=== PATIENT | female | born 1940 | race Caucasian/White ===

== ENCOUNTER 2018-06-15 13:23 | Emergency (ER) | payer MEDICARE, OTHER ==
[~2018-06-15] VITALS: Ht 160 cm; Wt 73.9 kg
[~2018-06-15 13:23] MED LIST: BUSPIRONE HCL15 MG PO; CEFDINIR300 MG PO; CLONAZEPAM0.5 MG PO; FLUOXETINE HCL25 GM; FLUOXETINE HCL40 MG PO; KLONOPIN0.5 MG PO; LIPITOR20 MG PO; LIPITOR40 MG PO; LISINOPRIL10 MG PO; MELOXICAM7.5 MG PO; METHOCARBAMOL500 MG; METHOCARBAMOL500 MG PO; NEXIUM40 MG PO; NORCO 10MG-325MG1 EA PO; NORCO 5-325 TA1 EACH PO; PROZAC20 MG; SEROQUEL25 MG PO; SEROQUEL300 MG PO; ULTRAM 50MG50 MG PO; ULTRAM50 MG PO; XANAX0.25 MG
[2018-06-15 16:10] VITALS: BP 125/95
== END 2018-06-15 14:40 | disposition home or self-care (01) ==
LOC: ER 13:23
DX: Z76.0 Encounter for issue of repeat prescription (principal)
CPT/HCPCS: 99282